=== PATIENT | female | born 1975 | race Caucasian/White ===

== ENCOUNTER 2018-01-15 12:40 | Emergency (ER) | payer BC ==
[~2018-01-15] VITALS: Ht 167.6 cm; Wt 90.7 kg
--- NOTE | ~2018-01-15 | EKG ---
[place], [place] ELECTROCARDIOGRAM REPORT NAME: CAMILLA CORONA UNIT #: [id number] ROOM: DOCTOR: ELADIA BROUSSARD MD BIRTHDATE: [birth year] DOS: 01/15/2018 TIME: 1307 hours. FINDINGS: 1. Normal sinus rhythm at 71 beats per minute. 2. The tracing is within normal limits. 3. No previous tracing is available for comparison. ELADIA BROUSSARD MD CM:EKGRPT:ELECTROCARDIOGRAM REPORT [id number] ELADIA BROUSSARD MD
[~2018-01-15 12:40] MED LIST: ADVAIR 250/501 EA INH; CYMBALTA60 MG PO; PERCOCET 325 MG1 TA5 PO; PROAIR HFA0.09 MG/AC IH
[2018-01-15 13:07] LABS: BASO # 0.1 10*3/uL (0.0-0.1); BASO % 0.8 % (0.0-1.0); EOS # 0.3 10*3/uL (0.0-0.4); EOS % 5.4 % (1.0-4.0); HEMATOCRIT 40.7 % (37.0-47.0); HEMOGLOBIN 13.7 g/dl (12.0-16.0); LYMPH # 2.1 10*3/uL (1.3-4.4); MEAN CELL VOLUME 87.7 fl (81.0-99.0); MEAN CORPUSCULAR HGB 29.5 pg (27.0-31.0); MEAN CORPUSCULAR HGB CONC 33.7 g/dl (33.0-37.0); MONO # 0.4 10*3/uL (0.1-1.0); MONO % 7.4 % (3.0-9.0); NEUT % 50.9 % (47.0-73.0); PLATELET COUNT AUTOMATED 229 10*3/uL (130-400); RED BLOOD COUNT 4.64 10*6/uL (4.10-5.10); RED CELL DISTRI WIDTH 13.3 % (0-14.5); WHITE BLOOD COUNT 5.9 10*3/uL (4.8-10.8)
[2018-01-15 13:12] LABS: ACT PARTIAL THROMBO TIME 24.9 SECONDS (20.8-31.5)
[2018-01-15 13:28] LABS: ALBUMIN 4.4 gm/dl (3.1-4.5); ALKALINE PHOSPHATASE 90 U/L (45-117); BUN 9 mg/dl (7-24); CHLORIDE 106 mmol/L (98-107); POTASSIUM 4.3 mmol/L (3.5-5.1); SGOT/AST 19 IU/L (3-35); SGPT/ALT 41 U/L (12-78); SODIUM 141 mmol/L (136-145); TOTAL PROTEIN 7.6 gm/dL (6.4-8.2)
[2018-01-15 13:29] LABS: TROPONIN I < 0.015 ng/ml (<0.045)
== END 2018-01-15 14:13 | disposition home or self-care (01) ==
LOC: ED 12:40
PROVIDERS: Student in an Organized Health Care Education/Training Program
DX: R20.2 Paresthesia of skin (principal); Z90.710 Acquired absence of both cervix and uterus; Z79.899 Other long term (current) drug therapy